=== PATIENT | female | born 1945 | race Caucasian/White ===

== ENCOUNTER → 2024-01-06 12:38 | Outpatient (REF) | payer MEDICARE, BC, SELFPAY | LOC: DHCBS HW 12:38 | PROVIDERS: ATTENDING PHYSICIAN Internal Medicine Interventional Cardiology; FAMILY PHYSICIAN Internal Medicine | DX: E78.2 Mixed hyperlipidemia (principal); I10 Essential (primary) hypertension; R73.03 Prediabetes; R00.2 Palpitations; R06.09 Other forms of dyspnea | CPT/HCPCS: 93306 ==

== ENCOUNTER → 2024-01-13 07:48 | Outpatient (REF) | payer MEDICARE, BC, SELFPAY | LOC: DHCBC/DCA 07:48 | PROVIDERS: ATTENDING PHYSICIAN Internal Medicine Interventional Cardiology; FAMILY PHYSICIAN Internal Medicine | DX: I10 Essential (primary) hypertension (principal); R00.2 Palpitations; R06.09 Other forms of dyspnea | CPT/HCPCS: 78452; 93017; A9500 ==

== ENCOUNTER → 2024-01-14 09:17 | Outpatient (REF) | payer MEDICARE, BC, SELFPAY ==
--- NOTE | 2024-01-25 10:39 | OID.L.PAT ---
Pulmonary Nodule Pat Letter
- -
01/25/24
FARA KASPER
[address]
[place], [place] [address]
Dear FARA,
A pulmonary nodule was seen on an imaging study done by [facility]. This was reviewed by the [facility] Pulmonary Nodule Advisory Board and the following recommendation was made:
Recommendation: Follow up CT Chest in 3 - 4 months
If you have any questions, please do not hesitate to contact your primary care physician. If you are in need of a Physician, you can go to [email or web address] and click on 'Find a Provider'. Type 'Family Medicine' in the search.
Oncology Nurse Navigator
[facility]
[phone]
--- NOTE | 2024-01-25 10:40 | OID.L.REC ---
Pulmonary Nodule Follow Up
- Recommendation
01/25/24
Pulmonary Nodule Review Recommendations
Your patient, FARA KASPER, had a pulmonary nodule seen on an imaging study done on 01/14/24 in the [facility].
This was reviewed by the [facility] Pulmonary Nodule Advisory Board and the following recommendation was made:
Recommendation: Follow up CT Chest in 3 - 4 months
If you have any questions please do not hesitate to contact us.
Sincerely,
Oncology Nurse Navigator
[facility]
[phone]
== END ==
LOC: HWRAD 09:17
PROVIDERS: ATTENDING PHYSICIAN Internal Medicine Interventional Cardiology; FAMILY PHYSICIAN Internal Medicine
DX: E78.2 Mixed hyperlipidemia (principal); R06.09 Other forms of dyspnea
CPT/HCPCS: 75571

== ENCOUNTER → 2024-01-15 08:30 | Outpatient (REF) | payer MEDICARE, BC, SELFPAY | LOC: HWRAD 08:30 | PROVIDERS: ATTENDING PHYSICIAN Specialist; FAMILY PHYSICIAN Internal Medicine | DX: R10.9 Unspecified abdominal pain (principal) | CPT/HCPCS: 74177; Q9967 ==

== ENCOUNTER 2024-10-21 12:03 | Emergency (ER) | payer MEDICARE, BC, SELFPAY ==
[2024-10-21 12:05] VITALS: BP 125/76
--- NOTE | 2024-10-21 14:57 | ED.GENMED ---
History of Present Illness
General
Chief Complaint: Weakness
Time Seen by Provider: 10/21/24 14:57
History of Present Illness
History of Present Illness:
TIME OF INITIAL ENCOUNTER: 3 PM
HPI: The patient started having symptoms approximately 2 weeks ago. She had cough, congestion, countless amount of diarrhea, she developed hematuria and had coughed up some blood clots (is on Eliquis). She also has intermittent abdominal pain.
She feels weak. She did not test herself for COVID but thinks maybe she had COVID recently. She did have 1 episode of burning with urination earlier today.
EXAM:
GENERAL: Well appearing in no distress, occasional wet sounding cough heard
HEENT: Moist oral mucosa
CARDIOVASCULAR: No murmurs, borderline tachycardic heart rate, regular rhythm, No chest wall tenderness
PULMONARY: No respiratory distress, breath sounds are clear and equal
ABDOMEN: Soft with no peritoneal signs, mild diffuse abdominal tenderness
NEUROLOGIC: Good strength all extremities, no coordination deficits
PSYCHIATRIC: Appropriate mental status, normal insight and judgement
EXTREMITIES: Nontender, no edema, moves all extremities equally
SKIN: No rash, no lesions
NUMBER AND COMPLEXITY OF PROBLEMS ADDRESSED AT THE ENCOUNTER
� Chronic conditions affecting care: Diverticular disease, has had kidney stones, anemia,
� Acute Exacerbation and/or Progression of Chronic Illness: This is an acute problem
� Differential Diagnosis includes: Prolonged viral illness, dehydration, LOKI, electrolyte normality, coagulopathy from Eliquis
AMOUNT AND/OR COMPLEXITY OF DATA TO BE REVIEWED AND ANALYZED
� I performed an independent evaluation of and my interpretation is:
EKG:
CT:
X-rays: Chest x-ray clear
Laboratory Studies: White count and hemoglobin are normal, renal function and sodium is normal, urinalysis suggest infection
Other:
� Review of other/old records: I reviewed old records, most recent hemoglobin was 14.2 in June of 2023
� Clinical information was obtained by an independent historian: None needed
� Prescriptions/Medications Considered but not given:
� Further testing considered but not performed:
RISK OF COMPLICATIONS AND/OR MORBIDITY OR MORTALITY OF PATIENT MANAGEMENT
� Social determinants of health affecting care: Lives at home
� Discussion with other providers:
� Escalation of care including admission/observation vs risk of discharge considered:
ANY OTHER UPDATES:
6:20 PM: The patient was given IV fluids earlier.
7:30 PM: The patient has a relatively unremarkable ED workup. She does have ongoing concerns including abdominal pain. She states that the diarrhea has lessened over the last few days compared to earlier. Her white count is normal. Although her
potassium initially hemolyzed, her renal function is normal. Will give antibiotics for just a short course for the possibly of urinary tract infection.
Past History
Past History
ED Past Medical History: Other (Diverticulosis)
ED Past Surgical History: None
Social History
Tobacco: Non-smoker
Alcohol: None
Phy Exam
Physical Exam
Physical Exam:
See HPI
Course
Orders/Labs/Results
Orders:
Orders
10/21/24 14:58
CR Chest - 2 Views Urgent
Comment:
Reason For Exam: cough
10/21/24 15:14
CT Abd/pelvis W Iv Cont Urgent
Comment:
Reason For Exam: diffuse pain; diarrhea
Basic Metabolic Panel Urgent
COVID-19 Antigen Urgent
Source: Nasal Swab
Complete Blood Count/With Diff Urgent
Influenza A+B Rapid Molecular Urgent
ISABELA Source: Nasal Swab
Specimen Description:
10/21/24 15:15
0.9% Sodium Chloride 1000 ml [Nss] 1,000 ml IV BOLUS
10/21/24 15:28
Urinalysis Reflex To Culture Urgent
Date Specimen was Collected: 10/21/24
Time Specimen was Collected: 15:20
Urine Microscopic Reflex Cult Urgent
Urine Culture Urgent
ISABELA Source: U
Specimen Description:
Date Specimen was Collected: 10/21/24
Time Specimen was Collected: 15:20
10/21/24 17:23
CefTRIAXone [Rocephin] 1,000 mg IV NOW STA
10/21/24 17:40
Sterile Water [Sterile Water For Injection] 10 ml .ROUTE .STK-MED ONE
Abnormal Lab Results
10/21/24 10/21/24
15:14 15:28
RBC 4.14 L 10^6/uL
(4.20-5.40)
MCH 32.4 H pg
(27.0-31.0)
Absolute Monos (auto) 0.9 H 10^3/uL
(0.1-0.6)
Monocytes % 11.6 H %
(1.7-9.3)
Glucose 111 H mg/dl
(70-99)
Urine Ketones 1+ A
(Negative)
Ur Occult Blood Reflex 3+ A
(Negative)
Urine Nitrite (Reflex) Positive A
(Negative)
Leukocyte Esterase Rfl 2+ A
(Negative)
Urine RBC 3-6 A /HPF
(0-2)
Urine WBC (Reflex) 70-80 A /HPF
(0-5)
Urine Bacteria (Reflex) Many A
(Negative)
Urine Albumin (Reflex) 1+ A
(Neg - Trace)
10/21/24 15:14
10/21/24 15:14
Vital Signs
Initial and Last Documented VS:
Initial Vital Signs
Temp Pulse Resp BP Pulse Ox
36.7 C 98 20 125/76 98
10/21/24 12:05 10/21/24 12:05 10/21/24 12:05 10/21/24 12:05 10/21/24 12:05
Last Documented Vital Signs
Temp Pulse Resp BP Pulse Ox
36.7 C 83 16 114/77 94
10/21/24 12:05 10/21/24 19:24 10/21/24 19:24 10/21/24 19:22 10/21/24 19:24
*Critical Care Note
Total Time (30-74mins, 75-104mins- exclusive of procedures): Not Applicable
ED Attending Note
-
Portions of this chart may have been created with voice recognition software.� Occasional wrong word or��sound alike� substitutions may have occurred due to the inherent limitations of voice recognition software.
Discharge Plan
Departure
Patient Disposition: Home (Routine Discharge)
Date of Disposition: 10/21/24
Time of Disposition: 19:22
Patient with high blood pressure during this ER visit?: Yes
Discharge Problem:
Acute viral syndrome
Instructions: Generalized Weakness (DC)
Prescriptions:
New
cephalexin 500 mg tablet
500 mg PO TID Qty: 6 0RF
No Action
loperamide 2 mg Tablet
2 mg PO BIDPRN PRN (Reason: diarrhea) Qty: 0
cholecalciferol (vitamin D3) 125 mcg (5,000 unit) Tablet
125 mcg PO DAILY
cyanocobalamin (vitamin B-12) 1,000 mcg Tablet
1,000 mcg PO DAILY
amlodipine [Norvasc] 5 mg Tablet
5 mg PO DAILY
metoprolol succinate [Toprol XL] 25 mg Tablet Extended Release 24 Hr
25 mg PO BID
rosuvastatin [Crestor] 20 mg Tablet
20 mg PO DAILY
Eliquis 5 mg Tablet
5 mg PO BID
Metamucil Fiber Thin 2 gram Wafer
2 wafer PO BID
Referrals:
Mayra Bonner, [Family Provider] -
Activity Restrictions/Additional Instructions:
The cause of your symptoms is unclear. This could be related to a viral syndrome. The CAT scan of the abdomen pelvis did not show any clear sign of cause of your discomfort. There is no sign of diverticulitis. The urinalysis does show signs of
infection we gave you a dose of IV Rocephin and I am sending prescription for Keflex to your pharmacy. Your white blood cell count and hemoglobin levels are normal. Your kidney function is normal. The chest x-ray was read by the radiologist as
clear. When you do eat food, I recommend that you just eat small amounts at a time.
Interventions
Interventions:
*Risk Screen - Suicide Last Done: 10/21/24 16:05
*General Assessment Last Done: 10/21/24 12:05
*Neglect/Abuse Screening Last Done: 10/21/24 16:05
ED- Fall Risk Assessment Last Done: 10/21/24 16:12
*ED COVID-19 Vaccine History Last Done: 10/21/24 16:05
ED- Cardiac Assessment Last Done: 10/21/24 16:12
ED- Neurological Assessment Last Done: 10/21/24 16:12
ED- Pulmonary Assessment Last Done: 10/21/24 16:12
Discharge Date and Time
Print Language: BENINESE
[2024-10-21 15:21] LABS: % Basophils 0.4 % (0-2); % Eosinophils 0.7 % (0-6); % Immature Granulocytes 0.1 % (0-0.5); % Lymphocytes 25.9 % (20.5-51.1); % Monocytes 11.6 % (1.7-9.3); % Neutrophils 61.3 % (42.2-75.2); Absolute Eosinophils 0.1 10^3/uL (0-0.7); Absolute Lymphocytes 1.9 10^3/uL (1.2-3.4); Absolute Monocytes 0.9 10^3/uL (0.1-0.6); Absolute Neutrophils 4.5 10^3/uL (1.4-6.5); Hemoglobin 13.4 g/dL (12.0-16.0); Mean Corp Hgb Conc. 33.5 g/dL (33.0-37.0); Mean Corpuscular Hgb 32.4 pg (27.0-31.0); Mean Corpuscular Volume 96.6 fL (81.0-99.0); Nucleated Red Blood Cells % 0 %; Platelet Count 290 10^3/uL (130-400); Red Blood Cell Count 4.14 10^6/uL (4.20-5.40); Red Cell Dist. Width 12.5 % (11.5-14.5); White Blood Cell Count 7.4 10^3/uL (4.8-10.8)
[2024-10-21 15:22] VITALS: BP 145/64
[2024-10-21] MEDS: NSS 1000 IV (15:29)
[2024-10-21 15:37] LABS: COVID-19 Antigen Negative (Negative)
[2024-10-21 15:39] LABS: Urine Albumin 1+ (Neg - Trace); Urine Bilirubin Negative (Negative); Urine Character Slightly Cloudy (Clear); Urine Color Yellow; Urine Glucose Negative (Negative); Urine Ketone 1+ (Negative); Urine Leukocyte 2+ (Negative); Urine Nitrite Positive (Negative); Urine Occult Blood 3+ (Negative); Urine Urobilinogen Negative (Neg - 1+)
[2024-10-21 15:41] LABS: Blood Urea Nitrogen 11 mg/dl (7-17); Calcium 9.7 mg/dl (8.4-10.2); Carbon Dioxide 25 mmol/L (22-30); Chloride 106 mmol/L (98-107); Glucose 111 mg/dl (70-99); Sodium 141 mmol/L (135-145); eGFR > 60.00
[2024-10-21 16:11] VITALS: BP 112/83
[2024-10-21 16:40] LABS: Urine Bacteria Many (Negative); Urine Squamous Cell None seen /LPF (Few); Urine White Cell 70-80 /HPF (0-5)
[2024-10-21 17:01] VITALS: BP 124/64
[2024-10-21] MEDS: ROCEPHIN 1000 MG IV (17:43)
[2024-10-21 19:22] VITALS: BP 114/77
== END 2024-10-21 19:37 | disposition home or self-care (01) ==
LOC: EMR 12:03
PROVIDERS: EMERGENCY PHYSICIAN Emergency Medicine; FAMILY PHYSICIAN Internal Medicine
DX: B34.9 Viral infection, unspecified (principal); Z11.52 Encounter for screening for COVID-19; R03.0 Elevated blood-pressure reading, without diagnosis of hypertension; Z79.01 Long term (current) use of anticoagulants
CPT/HCPCS: 99285; 96374; 96361; 71046; 74177; 80048; 81003; 81015; 85025; 87077; 87086; 87186; 87502; 87811; Q9967

== ENCOUNTER → 2025-05-03 12:34 | Outpatient (REF) | payer MEDICARE, BC, SELFPAY ==
[2025-05-03 14:42] LABS: Hematocrit 39.7 % (37.0-47.0); Hemoglobin 13.4 g/dL (12.0-16.0); Mean Corp Hgb Conc. 33.8 g/dL (33.0-37.0); Mean Corpuscular Hgb 32.9 pg (27.0-31.0); Mean Corpuscular Volume 97.5 fL (81.0-99.0); Mean Platelet Volume 9.9 fL (7.4-10.4); Platelet Count 206 10^3/uL (130-400); Red Blood Cell Count 4.07 10^6/uL (4.20-5.40); Red Cell Dist. Width 13.3 % (11.5-14.5); White Blood Cell Count 5.9 10^3/uL (4.8-10.8)
[2025-05-03 14:57] LABS: Blood Urea Nitrogen 14 mg/dl (7-17); Calcium 10.1 mg/dl (8.4-10.2); Carbon Dioxide 25 mmol/L (22-30); Chloride 111 mmol/L (98-107); Glucose 97 mg/dl (70-99); Potassium 4.1 mmol/L (3.5-5.1); Sodium 142 mmol/L (135-145); eGFR > 60.00
== END ==
LOC: SDSPAT 12:34
PROVIDERS: ATTENDING PHYSICIAN Urology; FAMILY PHYSICIAN Internal Medicine; OTHER PHYSICIAN Internal Medicine Interventional Cardiology
DX: Z01.818 Encounter for other preprocedural examination (principal)
CPT/HCPCS: 36415; 80048; 85027

== ENCOUNTER 2025-05-09 06:09 | Day surgery (SDC) | payer MEDICARE, BC, SELFPAY ==
[2025-05-03 13:52] VITALS: BMI 28.1
[2025-05-09] VITALS (8 sets, daily range): BP systolic 105–132; BP diastolic 49–67; BMI 28.1
[2025-05-09] MEDS: NORMOSOL-R/PLASMALYTE-A 1000 IV (06:34)
[2025-05-09] MEDS: SUBLIMAZE 50 MCG IV ×2 (08:55→09:06)
== END 2025-05-09 10:26 | disposition home or self-care (01) ==
LOC: SDS 06:09
PROVIDERS: ATTENDING PHYSICIAN Urology
DX: N20.0 Calculus of kidney (principal); R31.0 Gross hematuria; N13.1 Hydronephrosis with ureteral stricture, not elsewhere classified
CPT/HCPCS: 52356; 74420; 76000; 82365; A4300; C2617

== ENCOUNTER → 2025-07-05 10:27 | Outpatient (REF) | payer MEDICARE, BC, SELFPAY | LOC: RAD 10:27 | PROVIDERS: ATTENDING PHYSICIAN Urology; FAMILY PHYSICIAN Internal Medicine | DX: N13.5 Crossing vessel and stricture of ureter without hydronephrosis (principal); N13.30 Unspecified hydronephrosis | CPT/HCPCS: 78708; A9539 ==

== ENCOUNTER 2025-11-07 06:25 | Day surgery (SDC) | payer MEDICARE, BC, SELFPAY | END 2025-11-07 11:25 | disposition home or self-care (01) | LOC: GI 06:25 | PROVIDERS: ATTENDING PHYSICIAN Specialist | DX: R10.13 Epigastric pain (principal); K44.9 Diaphragmatic hernia without obstruction or gangrene; K31.7 Polyp of stomach and duodenum; K29.50 Unspecified chronic gastritis without bleeding; K31.A11 Gastric intestinal metaplasia without dysplasia, involving the antrum | CPT/HCPCS: 43239; 88305; 88342 ==